=== PATIENT | female | born 1985 ===

== ENCOUNTER 2018-04-22 15:45 | Emergency (ER) | payer MEDICAID ==
[2018-04-22 16:08] VITALS: BMI 27.4
[2018-04-22 16:09] VITALS: RESP 18
[2018-04-22] MEDS ORDERED: Oxycodone/Acetaminophen 5/325 mg Tab PO STA (16:31)
--- NOTE | 2018-04-22 16:41 | ED PDOC ---
Arrival/HPI - General Chief Complaint: Dental Pain Time Seen by Provider: 04/22/18 15:47 Historian: Patient - History of Present Illness Narrative History of Present Illness (Text): 04/22/18 16:33 33yo female with pmhx of seizures who present with complaint of right sided upper molar toothache x 3days. States pain started after her filling came out, during her seizure episode. States she have taken many OTC analgesic without r elieve. Notes that she have a Dentist and if they open tomorrow, she will see the Dentist. Denies fever, chills, any other complaint. Past Medical History - Provider Review Nursing Documentation Reviewed: Yes - Infectious Disease Hx of Infectious Diseases: None - Cardiac Hx Cardiac Disorders: No - Pulmonary Hx Asthma: Yes - Neurological Hx Migraine: Yes Hx Seizures: Yes - HEENT Hx HEENT Disorder: No - Renal Hx Renal Disorder: No - Endocrine/Metabolic Hx Endocrine Disorders: No - Hematological/Oncological Hx Anemia: Yes - Integumentary Hx Dermatological Disorder: No - Musculoskeletal/Rheumatological Hx Falls: No - Gastrointestinal Hx Gastritis: Yes - Genitourinary/Gynecological Hx Genitourinary Disorders: No - Psychiatric Hx Anxiety: Yes Hx Substance Use: No - Surgical History Hx Dilation and Curettage: Yes (for missed at 15 wga) - Anesthesia Hx Anesthesia: Yes Hx Anesthesia Reactions: No Hx Malignant Hyperthermia: No - Suicidal Assessment Feels Threatened In Home Enviroment: No Family/Social History - Physician Review Nursing Documentation Reviewed: Yes Family/Social History: Unknown Family HX Smoking Status: Never Smoked Hx Alcohol Use: No Hx Substance Use: No Allergies/Home Meds Allergies/Adverse Reactions: Allergies morphine Allergy (Verified 04/22/18 16:07) RASH onion Allergy (Verified 04/22/18 16:07) ITCHING Home Medications: Home Meds Medication Instructions Recorded Confirmed RX: Vits96/Iron Fum/Folic 1 tab PO ACBL 08/19/14 09/19/16 [ Tablet] RX: Levetiracetam [Keppra] 750 mg PO BID 08/31/16 09/19/16 Review of Systems - Physician Review All systems were reviewed & negative as marked: Yes - Review of Systems Constitutional: Normal Eyes: Normal ENT: Other (Toothache) Respiratory: Normal Cardiovascular: Normal Gastrointestinal: Normal Genitourinary Female: Normal Musculoskeletal: Normal Skin: Normal Neurological: Normal Endocrine: Normal Hemo/Lymphatic: Normal Psychiatric: Normal Physical Exam Vital Signs Reviewed: Yes Vital Signs Temp Pulse Resp BP Pulse Ox 04/22/18 16:07 97.7 F 83 18 152/94 H 97 Temperature: Afebrile Blood Pressure: Normal Pulse: Regular Respiratory Rate: Normal Appearance: Positive for: Well-Appearing, Non-Toxic, Comfortable Pain Distress: None Mental Status: Positive for: Alert and Oriented X 3 - Systems Exam Head: Present: Atraumatic, Normocephalic Pupils: Present: PERRL Extroacular Muscles: Present: EOMI Conjunctiva: Present: Normal Mouth: Present: Moist Mucous Membranes. No: Normal Teeth (Right sided upper 2nd chipped molar noted with central hole. No gingival swelling noted) Neck: Present: Normal Range of Motion Respiratory/Chest: Present: Clear to Auscultation, Good Air Exchange. No: Respiratory Distress, Accessory Muscle Use Cardiovascular: Present: Regular Rate and Rhythm, Normal S1, S2. No: Murmurs Abdomen: No: Tenderness, Distention, Peritoneal Signs Back: Present: Normal Inspection Upper Extremity: Present: Normal Inspection. No: Cyanosis, Edema Lower Extremity: Present: Normal Inspection. No: Edema Neurological: Present: GCS=15, CN II-XII Intact, Speech Normal Skin: Present: Warm, Dry, Normal Color. No: Rashes Psychiatric: Present: Alert, Oriented x 3, Normal Insight, Normal Concentration Medical Decision Making ED Course and Treatment: 04/22/18 18:46 PT in ED for stated history. Her pain was controlled in ED with medication and she was DC home with Tylenol #3 5tabs and Amoxicillin. Advised to f/u with her Dentist. - Medication Orders Current Medication Orders: Amoxicillin (Amoxil 500 Mg Cap) 500 mg PO STAT STA; Protocol Stop: 04/22/18 16:32 Ketorolac Tromethamine (Toradol) 30 mg IM STAT STA Stop: 04/22/18 16:32 Oxycodone/Acetaminophen (Percocet 5/325 Mg Tab) 1 tab PO STAT STA Stop: 04/22/18 16:32 Disposition/Present on Arrival - Present on Arrival Any Indicators Present on Arrival: No History of DVT/PE: No History of Uncontrolled Diabetes: No Urinary Catheter: No History of Decub. Ulcer: No History Surgical Site Infection Following: None - Disposition Have Diagnosis and Disposition been Completed?: Yes Diagnosis: Dental caries Disposition: HOME/ ROUTINE Disposition Time: 16:50 Patient Plan: Discharge Condition: STABLE Discharge Instructions (ExitCare): Dental Pain Additional Instructions: Follow up with your dentist Return to ED for any new symptoms Prescriptions: Acetaminophen with Codeine [Tylenol with Codeine #3 Tablet] 1 each PO Q6 #5 tablet Amoxicillin [Amoxil 500 mg Cap] 500 mg PO TID #21 cap RX: Ibuprofen [Motrin Tab] 600 mg PO Q6 #15 tab Referrals: Nargis Miramontes MD [Medical Doctor] - Follow up with primary Forms: [employer] ([place])
[2018-04-22 17:53] VITALS: BP 147/92; PULSE 76; TEMP 98.3; O2SAT 98
== END 2018-04-22 17:53 | disposition home or self-care (01) ==
LOC: ED 15:45
DX: K02.9 Dental caries, unspecified (principal)
CPT/HCPCS: 81025; 96372; 99283; J1885